=== PATIENT | male | born 1970 | race Caucasian/White ===

== ENCOUNTER → 2017-05-21 | Outpatient (CLI) | payer BC ==
[~2017-05-21] MED LIST: CONTRAST GIVEN MC
[2017-05-21] MEDS: LIDOCAINE 1% Multi-Dose 20 ML VIAL. ID (13:40)
[2017-05-21] MEDS: GADOBUTROL 7.5 MMOL/7.5 ML VIAL INT ART (13:42)
[2017-05-21] MEDS: IOHEXOL 300 MG/ML 50 ML VIAL. INT ART (13:42)
== END | disposition home or self-care (01) ==
LOC: KCIC 12:46
DX: M75.102 Unspecified rotator cuff tear or rupture of left shoulder, not specified as traumatic (principal); M25.712 Osteophyte, left shoulder
CPT/HCPCS: 73040; 73222; A9585; Q9967